=== PATIENT | male | born 1980 | race Caucasian/White ===

== ENCOUNTER 2017-09-04 07:44 | Emergency (ER) | payer OTHER ==
[2017-09-04] MEDS ORDERED: Morphine 2 MG/ML Syringe IVPUSH ONE (13:16)
--- NOTE | 2017-09-04 14:18 | ER ---
HISTORY OF PRESENT ILLNESS: A 37-year-old male here with complaints of falling last evening. [place] after having supper when he slipped on the ice and fell. He injured his right ankle and right lower leg. The patient limped back to the room where they were staying and he took some Motrin and thought it might be better today, it is not. He states it hurts when he walks, but he is able to bear some weight. The patient denies any other injuries. He is otherwise healthy. He is not taking any current medications other than a couple of doses of ibuprofen. OBJECTIVE: GENERAL APPEARANCE: The patient is awake and alert. No obvious distress. VITAL SIGNS: Reviewed. Examining the right leg reveals mild swelling of the proximal end of the calf muscle, lateral side over the proximal fibula. The skin is intact. There is no bruising. Examining the ankle reveals just minimal swelling on the lateral side of the ankle. CMS of the patient's foot and toes are normal. LABORATORY AND X-RAY DATA: X-ray of the right ankle is obtained and appears normal. Tib- fib x-ray shows a proximal fibula fracture with mild displacement. DIAGNOSIS: Fibular fracture, proximal. TREATMENT PLAN: A posterior splint was applied in the ER going up to just above the patient's knee. RICE therapy directions were given to him. He was given crutches. He is to be just touchdown weightbearing at this time. He is to keep his foot inter leg elevated as much as possible for the next few days. He refuses anything stronger than over-the- counter medications for pain control. I advised patient to use Tylenol or ibuprofen as needed. He can ice the areas of injury fairly frequently for the next couple of days. I want the patient to follow up with his primary care provider when he gets home next week for further evaluation and casting purposes. The patient has no further questions. ERAN/FLOR /[id number]
--- NOTE | 2017-09-05 12:16 | CR ---
DATE OF SERVICE: 09/04/17 CLINICAL DATA: injury - fell. RIGHT LOWER LEG: No priors. There is a mildly displaced oblique fracture through the proximal fibular diaphysis. No other acute abnormalities. There is ossification within the distal patellar tendon. [id number] [facility]
--- NOTE | 2017-09-05 12:18 | CR ---
DATE OF SERVICE: 09/04/17 CLINICAL DATA: injury - fell. RIGHT ANKLE: There is mild soft tissue swelling over the lateral malleolus. No acute fracture or dislocation. No lytic or blastic bone lesions. 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 There is a small plantar calcaneal spur. IMPRESSION: No acute abnormalities. [id number] [facility]
== END 2017-09-04 09:00 | disposition home or self-care (01) ==
LOC: LB.ED 07:44
DX: S82.831A Other fracture of upper and lower end of right fibula, initial encounter for closed fracture (principal); W00.0XXA Fall on same level due to ice and snow, initial encounter; Y93.01 Activity, walking, marching and hiking
CPT/HCPCS: 29515; 73590-RT; 73610-RT; 96374; 99284-25